=== PATIENT | female | born 2005 | race Caucasian/White ===

== ENCOUNTER → 2023-04-13 13:59 | Outpatient (BNVA) | payer BC, SELFPAY | PROVIDERS: Visit Provider Nurse Practitioner Women's Health | DX: Z34.90 Encounter for supervision of normal pregnancy, unspecified, unspecified trimester (principal); Z3A.00 Weeks of gestation of pregnancy not specified | CPT/HCPCS: 81000; 81025; 84439; 84443; 84481 ==

== ENCOUNTER → 2023-04-15 09:17 | Outpatient (BNVA) | payer BC, SELFPAY | PROVIDERS: Visit Provider Obstetrics & Gynecology | DX: Z34.90 Encounter for supervision of normal pregnancy, unspecified, unspecified trimester (principal); Z3A.01 Less than 8 weeks gestation of pregnancy | CPT/HCPCS: 76817 ==

== ENCOUNTER → 2023-05-12 09:45 | Outpatient (BNVA) | payer BC, SELFPAY | PROVIDERS: Visit Provider Obstetrics & Gynecology | DX: Z34.90 Encounter for supervision of normal pregnancy, unspecified, unspecified trimester (principal) | CPT/HCPCS: 80307; 84315; 85027; 86592; 86762; 86803; 86850; 86900; 87086; 87340; 87491; 87591; 87806 ==

== ENCOUNTER → 2023-06-16 13:41 | Outpatient (BNVA) | payer BC, SELFPAY | PROVIDERS: Visit Provider Nurse Practitioner Women's Health | DX: Z34.90 Encounter for supervision of normal pregnancy, unspecified, unspecified trimester (principal) | CPT/HCPCS: 82105; 84315 ==

== ENCOUNTER → 2023-07-14 14:27 | Outpatient (BNVA) | payer BC, SELFPAY | PROVIDERS: Visit Provider Nurse Practitioner Women's Health | DX: Z34.92 Encounter for supervision of normal pregnancy, unspecified, second trimester (principal); Z3A.20 20 weeks gestation of pregnancy | CPT/HCPCS: 76805 ==

== ENCOUNTER → 2023-08-11 07:57 | Outpatient (BNVA) | payer BC, SELFPAY | PROVIDERS: Visit Provider Nurse Practitioner Women's Health | DX: Z34.92 Encounter for supervision of normal pregnancy, unspecified, second trimester (principal); Z3A.24 24 weeks gestation of pregnancy | CPT/HCPCS: 76816 ==

== ENCOUNTER → 2023-08-12 07:53 | Outpatient (BNVA) | payer BC, SELFPAY | PROVIDERS: Visit Provider Nurse Practitioner Women's Health | DX: Z34.90 Encounter for supervision of normal pregnancy, unspecified, unspecified trimester (principal); R42 Dizziness and giddiness; Z3A.00 Weeks of gestation of pregnancy not specified | CPT/HCPCS: 82728; 82746; 83540; 83550; 84238; 84315; 84466; 85025 ==

== ENCOUNTER → 2023-08-25 09:16 | Outpatient (BNVA) | payer BC, SELFPAY | PROVIDERS: Visit Provider Obstetrics & Gynecology | DX: Z34.90 Encounter for supervision of normal pregnancy, unspecified, unspecified trimester (principal); Z3A.00 Weeks of gestation of pregnancy not specified | CPT/HCPCS: 76816 ==

== ENCOUNTER → 2023-09-08 09:13 | Outpatient (BNVA) | payer BC, SELFPAY | PROVIDERS: Visit Provider Obstetrics & Gynecology | DX: Z34.92 Encounter for supervision of normal pregnancy, unspecified, second trimester (principal); Z3A.24 24 weeks gestation of pregnancy | CPT/HCPCS: 82950; 84315; 85025 ==

== ENCOUNTER → 2023-11-03 13:17 | Outpatient (BNVA) | payer BC, MEDICAID, SELFPAY | PROVIDERS: Visit Provider Obstetrics & Gynecology | DX: Z34.92 Encounter for supervision of normal pregnancy, unspecified, second trimester (principal); Z3A.24 24 weeks gestation of pregnancy | CPT/HCPCS: 84315; 87081 ==

== ENCOUNTER 2023-11-07 08:59 | Inpatient (IN) | payer BC, MEDICAID, SELFPAY ==
[2023-11-07] VITALS (71 sets, daily range): BP systolic 103–144; BP diastolic 50–77; PULSE 68–114; RESP 16–17; TEMP 36.1–36.8; O2SAT 96–100; BMI 33.3
[2023-11-07 09:49] LABS: Basophils % 0.2 %; Eosinophils # 0.1 10^3/uL (0.0-0.8); Eosinophils % 0.7 %; Hematocrit 36.8 % (36-47); Lymphocytes # 1.9 10^3/uL (1.5-6.5); Lymphocytes % 17.2 %; Mean Corpuscular HGB Conc 32.6 g/dL (30-55); Mean Corpuscular Hemoglobin 29.1 pg (27-33); Mean Corpuscular Volume 89.3 fl (85-98); Mean Platelet Volume 12.3 fL (7.4-10.4); Monocytes # 0.8 10^3/uL (0.2-0.9); Monocytes % 7.4 %; Neutrophils # 8.35 10^3/uL (1.8-8.0); Neutrophils % 74.1 %; Nucleated Red Blood Cells % 0 %; Platelet Count 199 10^3/cmm (157-399); Red Blood Count 4.12 10^6/uL (3.85-5.65); Red Cell Distribution Width 12.5 % (12.1-15.1); White Blood Count 11.28 10^3/uL (4.5-13.0)
--- NOTE | 2023-11-07 09:49 | ANES.PREANE2 ---
Pre-Anesthetic Assessment Height/Weight: Height 1.6 m Weight 85.275 kg Pulse Resp BP O2 Del Method 83 16 119/59 Room Air 11/07/23 09:33 11/07/23 08:59 11/07/23 09:33 11/07/23 08:59 Epidural Familial anesthetic complications: None Was Beta Christa taken within 24 hours: N/A Was Clonidine taken within 24 hours: N/A Last intake: 7pm 11/05 solid food Social No alcohol and No tobacco Exam alert, oriented x 3, clear to auscultation bilaterally and regular rate & rhythm Airway Submandibular: within normal limits Cervical ROM: within normal limits Mallampati: Class II Dentition: full History/ROS No significant history except as noted and No significant complaints Pulmonary None reported CV/HEM None reported None reported Hepatic None reported GI Gastroesophageal Reflux Disease Metabolic Hashimotos Musc/skel None reported Neuropsych None reported Anesthetic Plan ASA status: 2 Anesthesia: Anesthesia Evaluation, General and Regional (specify below) (Epidural) Risk of > 500 ml blood loss (7ml/kg in children): No Medications/Allergies Allergies Allergy/AdvReac Type Severity Reaction Status Date / Time No Known Allergies Allergy Unverified 10/20/23 14:55 [facility] Anesthesia Medical History Jeff's thyroiditis Family History Denies family history of Cervical cancer Colon cancer Ovarian cancer Diabetes Breast cancer Hypertension Uterine cancer Thyroid disease Stroke Female Reproductive History : 1 Data Anesthesia 11/07/23 09:25 Short CBC 11/07/23 Range/Units 09:25 WBC 11.28 (4.5-13.0) 10^3/uL Hgb 12.00 L (12.4-14.8) g/dL Hct 36.8 (36-47) % MCV 89.3 (85-98) fl Plt Count 199 (157-399) 10^3/cmm Neut % (Auto) 74.1 % Neut # (Auto) 8.35 H (1.8-8.0) 10^3/uL Cardiac Studies: No Data to Display
[2023-11-07] MEDS: ondansetron 2 mg/ML SDV 2 mL 4 MG IVP (10:14)
[2023-11-07] MEDS: fentaNYL 50 mcg/mL INJ 2mL IVP ×3 (11:09→14:18)
--- NOTE | 2023-11-07 13:35 | P.HP_ITS ---
Providers/Chief Complaint 2 Admitting Physician: Kely Marquis DO Chief Complaint: cramping, bleeding HPI DATA WAREHOUSE ARCHITECT History of Present Illness Elizabeth Crenshaw is a 18 year old female G1, P0 at 36.5 weeks gestation and VIVIAN 11/30/2023 admitted to labor and delivery with complaint of uterine contractions and spotting onset 5:20 AM. Patient admitted to good movement. Initial pelvic exam cervix 1 cm 90% -3 vertex presentation. After observation at 8:55 AM spontaneous rupture membranes occurred with clear fluid being noted. Patient was then admitted to labor and delivery. External monitoring?category 1 and after spontaneous rupture membranes it has been 4 hours as cervix exam remains unchanged. I reviewed labor with patient and her family members in the room, reviewed augmentation with Pitocin to increase uterine contraction strength and frequency. The risk of nonreassuring monitoring which may require delivery by section was also reviewed. Risk of surgical complications including bleeding and infection were also reviewed. Patient understands and requested to ambulate before starting Pitocin. Risk of a fall or other injuries because of her use of narcotics for pain medicine was reviewed. Patient understands and family states they will assist her in walking if needed. 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 Present Details : 1 Para: 0 Labs Rubella: Immune RPR: Negative GBS: Negative Review of Systems 2 General: Reports: 10 or more systems reviewed and unremarkable except in HPI and below Narrative: 18-year-old female alert and orient x 3 no acute distress. Eyes: Reports: change in vision (Denies visual changes) Card: Reports: chest pain (Patient denies chest pain shortness of breath or any swelling of extremitie) Resp: Reports: dyspnea (Patient denies shortness of breath productive cough or any respiratory ailm) GI: Reports: abdominal pain (Patient denies abdominal pain nausea vomiting) : Reports: pelvic pain (Patient denies pelvic pain other than mild contractions, she denies any ronald) Neuro: Reports: headache(s) (Patient denies headaches blurred vision anxiety or depression.) Medications/Allergies Allergies Allergy/AdvReac Type Severity Reaction Status Date / Time No Known Allergies Allergy Unverified 10/20/23 14:55 PFSH DATA WAREHOUSE ARCHITECT 2 PFSH: Medical History Jeff's thyroiditis Family History Denies family history of Cervical cancer Colon cancer Ovarian cancer Diabetes Breast cancer Hypertension Uterine cancer Thyroid disease Stroke Other Female Reproductive History: Hx Age of Menarche: 10 Duration of menses: 3-5 days Date of Last Menstrual Period: 02/23/23 Menstrual flow: normal/abnormal: normal Sexual History: How old were you when you first had sex?: 14 Hx Sexually Transmitted Diseases: Yes STD History Comment: History of chlamydia?treated History History History 2 1 Term 0 Miscarriages/Ectopic Living Children Care VIVIAN Calculator 2 Estimated Delivery Date Method Current WG Current Estimate 11/30/23 LMP (Certain) 36w 5d Other Estimates 12/01/23 Ultrasound #1 36w 4d Vitals/I&O/Wt Last Vital Signs Pulse 83 11/07/23 09:33 Resp 17 11/07/23 12:17 BP 119/59 11/07/23 09:33 O2 Del Method Room Air 11/07/23 08:59 Weight last 48 hrs Weight 85.275 kg Physical Exam 2 Narrative: 18-year-old female alert and orient x 3 no acute distress Const: COMMON NORMALS: no acute distress, average body habitus, patient oriented x3, healthy appearing and well nourished HENMT: COMMON NORMALS: normocephalic, moist oral mucous membranes and dentition normal Resp: COMMON NORMALS: normal respiratory effort and clear to auscultation bilaterally Cardio: COMMON NORMALS: regular rate and regular rhythm Back/Pelvis: COMMON NORMALS: no CVA tenderness Extremity: COMMON NORMALS: normal to inspection, no clubbing, cyanosis or edema and no calf tenderness Neuro: COMMON NORMALS: patient oriented x3, CN's II-XII intact bilaterally, moves all extremities and gait normal Psych: COMMON NORMALS: mental status grossly normal Data 11/07/23 09:25 Results Labs OB ([facility]): 2 Obstetrics US 08/25/23 Blood Type A Positive 11/07/23 Antibody Screen Negative 11/07/23 Hct 36.8 % (36-47) 11/07/23 Hgb 12.00 g/dL (12.4-14.8) L 11/07/23 Rho(D) Type Rh positive 11/07/23 Plt Count 199 10^3/cmm (157-399) 11/07/23 Hep Bs Antigen Non-reactive (Nonreactive) 05/12/23 Hepatitis C Antibody Non-reactive (Nonreactive) 05/12/23 Rubella IgG Antibody 12.8 IU/mL (0.0-10.0) H 05/12/23 RPR Nonreactive (Nonreactive) 05/12/23 HIV 1&2 Ab & HIV 1 Ag Non-reactive (Non-Reactiv) 05/12/23 TSH 1.80 uIU/mL (0.27-4.20) 04/13/23 Free T4 1.24 ng/dL (0.93-1.60) 04/13/23 C.trachomatis RNA (TMA) Not detected (NOT DETECTED) N.gonorrhoeae RNA (TMA) Not detected (NOT DETECTED) T. vaginalis Amp RNA Not detected (NOT DETECTED) 05/12/23 Chlamydia/GC Comment See note 05/12/23 Cystic Fibrosis Screen Negative 05/12/23 Gest Glucose Tolerance 123 mg/dL (70-139) 09/08/23 HCG, Qual Positive (Negative) H 04/13/23 Urine Opiates Screen Negative ng/mL (Negative) 05/12/23 Ur Barbiturates Screen Negative ng/mL (Negative) 05/12/23 Ur Phencyclidine Scrn Negative ng/mL (Negative) 05/12/23 Ur Amphetamines Screen Negative ng/mL (Negative) 05/12/23 U Benzodiazepines Scrn Negative ng/mL (Negative) 05/12/23 Urine Cocaine Screen Negative ng/mL (Negative) 05/12/23 U Marijuana (THC) Screen Negative ng/mL (Negative) 05/12/23 Micro Urine Specimen 05/12/23 A&P Assessment and plan (1) 36 to 37 weeks gestation of : Admit to labor and delivery for management of labor Augmentation with Pitocin. (2) Spontaneous rupture of membranes: (3) Jeff's thyroiditis: Attestations 2 Medical Necessity Statement*: Admit to labor and delivery for management of labor. Coding Level of Care Code Acute Code for Chg Fwd Diagnoses 36 to 37 weeks gestation of Spontaneous rupture of membranes Jeff's thyroiditis E06.3
[2023-11-07] MEDS: dextrose 5%-lactated ringers 1,000 ML 125 ML IV (14:50)
[2023-11-07] MEDS: oxytocin 30 UNIT/500 ML BAG IV (14:51)
[2023-11-07] MEDS: ROPivacaine syringe 100 MG/50 ML SYRINGE 10 MG EPIDURAL ×2 (16:29→20:11)
--- NOTE | 2023-11-07 16:40 | ANES.PROC ---
Anesthesia Procedures Procedure/Date: 11/07/23 Epidural: Time Out Performed: Yes Consents Signed: Procedure Consent and NPO Consent Consent: requested by attending/covering physician, from patient, risks and benefits reviewed and patient agrees to proceed Lumbar Level: L3-L4 Epidural position: sitting Epidural procedure: sterile prep of area (betadine), 1% lidocaine to numb the area (3 mLs), neg for paresthesia, test dose given, 1.5% xylocaine 1:200k epi (3 mL/2 mL), 0.2% Ropivacaine bolus ml (5 mLs), placed PCEA, no systemic response, sterile dressing applied, L.U.D. no apparent complications and 0.2% Ropiavacaine @ mls/hr (10 mLs/hr) Additional Comments: Attempt x2. Attempt 1 unable to thread catheter. Attempt 2 WANDA 6cm, catheter threaded to 12 cm. 100 mcg fentanyl given via epidural
--- NOTE | 2023-11-07 19:26 | P.PN_ITS ---
TERRITORY SERVICE REPRESENTATIVE Subjective 2 Subjective: Interval history: Into see patient, denies pain, admits to good movement. EFM?category 1 but contractions q 1 , will decrease Pitocin. Cervix?6 cm / 100%/0 vertex with bloody show. Reviewed findings with patient. Labor: Station: -2 Amniotic Membrane Status: Ruptured Monitor Mode: External Contraction Pattern: Regular Vitals/I&O/Wt Last Vital Signs Temp 97.0 F L 11/07/23 17:26 Pulse 73 11/07/23 19:12 Resp 17 11/07/23 14:18 BP 119/57 11/07/23 19:12 Pulse Ox 99 11/07/23 17:19 O2 Del Method Room Air 11/07/23 16:00 11/07/23 11/07/23 11/07/23 06:59 14:59 22:59 Intake Total 500 / 500 275.767 / 775.767 Balance 500 / 500 275.767 / 775.767 Weight last 48 hrs Weight 85.275 kg Physical Exam 2 Urinary Catheter Management: Mckeon: Cath Placed During This Visit: yes Reason for Continuing Indwelling Catheter: Other Urinary Catheter Date of Insertion: 11/07/23 Urinary Catheter Time of Insertion: 17:24 Data 11/07/23 09:25 A&P Assessment and plan (1) 36 to 37 weeks gestation of : Continue labor management (2) Spontaneous rupture of membranes: (3) Jeff's thyroiditis: Attestations 2 Medical Necessity Statement*: Patient mated to labor and delivery for management of labor Coding Level of Care Code Acute Code for Chg Fwd Diagnoses 36 to 37 weeks gestation of Spontaneous rupture of membranes Jeff's thyroiditis E06.3
--- NOTE | 2023-11-07 20:51 | P.PCNOB_ITS ---
Delivery Note: Date of delivery: November 07, 2023 Pre-delivery diagnoses: 37wk IUP SROM Early labor Jeff thyroiditis Post-delivery diagnoses: same Op report anesthesia: Epidural Delivering Physician: Davina Estimated blood loss (mL): 300 Findings: Viable female Delivery: 18-year-old female G1, P1 delivered a vi able baby girl OA presentation over primary laceration of the perineum. The anterior followed by the posterior shoulders delivered with the remainder of the baby's body to follow. The oral and nasal pathways bulb suctioned. Spontaneous robust cry noted. After a short delay the cord was clamped and cut. The baby was placed on mother's abdomen for bonding and nursing assessment. The uterus was massaged and the placenta presented in a Figueroa presentation with trailing membranes. The IV solution with Pitocin was given in a bolus manner. The uterus was massaged and noted to be firm. The vaginal vault was explored with the superficial primary perineal laceration noted. This was approximated with a simple interrupted stitch of 2-0 Vicryl. The uterus remained firm with minimal bleeding. The three-vessel cord was noted. The perineal was cleansed and dried. Mother and are both in stable and satisfactory condition. 9/9 EBL?300 anesthesia?epidural complications?none Post-Delivery Status: Stable History History History 1 Term 1 Miscarriages/Ectopic Living Children 1 Past Pregnancies Del. Date GA/Weeks Outcome Route Wt Inf Gender Labor Lgth Comp. Anesth esia Location Unknown 36 Vaginal Female A&P Assessment and plan (1) 36 to 37 weeks gestation of : P. Routine care. (2) Spontaneous rupture of membranes: (3) Jeff's thyroiditis: Coding Level of Care Code Acute Code for Chg Fwd Diagnoses 36 to 37 weeks gestation of Spontaneous rupture of membranes Jeff's thyroiditis E06.3
[2023-11-07] MEDS: HYDROcodone-acetaminophen 5-325 mg Tablet PO (23:18)
[2023-11-07] MEDS: benzocaine-menthol 78 gm Canister 1 SPRAY TOPICAL (23:19)
[2023-11-08] VITALS (10 sets, daily range): BP systolic 100–116; BP diastolic 45–72; PULSE 73–111; RESP 16–18; TEMP 36.6–36.9; O2SAT 98–100
[2023-11-08] MEDS: acetaminophen 325 mg Tablet 650 MG PO (07:43)
[2023-11-08] MEDS: prenatal vitamin Capsule 1 CAP PO (08:35)
[2023-11-08] MEDS: docusate sodium 100 mg Capsule PO ×2 (08:35→20:33)
[2023-11-08] MEDS: ibuprofen 800 mg tablet PO ×3 (08:35→20:33)
[2023-11-08 08:57] LABS: Hematocrit 30.8 % (36-47); Mean Corpuscular HGB Conc 33.8 g/dL (30-55); Mean Corpuscular Hemoglobin 29.6 pg (27-33); Mean Corpuscular Volume 87.7 fl (85-98); Mean Platelet Volume 12.1 fL (7.4-10.4); Platelet Count 167 10^3/cmm (157-399); Red Blood Count 3.51 10^6/uL (3.85-5.65); Red Cell Distribution Width 12.8 % (12.1-15.1); White Blood Count 12.68 10^3/uL (4.5-13.0)
--- NOTE | 2023-11-08 10:41 | P.PN_ITS ---
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 Patient is tolerating regular diet and voiding ambulating in room without difficulties. Patient is breast-feeding, infant slow to latch. application integration specialist has consulted with patient. course and discharge expectations have been reviewed with patient and she verbalizes good understanding. VSS, afebrile Labor: Station: +1 Amniotic Membrane Status: Ruptured Monitor Mode: External Contraction Pattern: Regular Vitals/I&O/Wt Last Vital Signs Temp 98.2 F 11/08/23 06:16 Pulse 76 11/08/23 06:16 Resp 17 11/07/23 14:18 BP 100/61 11/08/23 06:16 Pulse Ox 100 11/08/23 06:16 O2 Del Method Room Air 11/08/23 06:16 11/07/23 11/08/23 11/08/23 22:59 06:59 14:59 Intake Total 651.134 / 1151.134 Output Total 300 / 400 Balance 351.134 / 751.134 Weight last 48 hrs Weight 85.275 kg Physical Exam 2 Const: COMMON NORMALS: patient oriented x3 : COMMON NORMALS: Yes no CVA tenderness BLADDER/KIDNEY EXAM: Yes no CVA tenderness Back/Pelvis: COMMON NORMALS: no CVA tenderness OTHER: Abdomen?soft, fundus firm well below the umbilicus. Lochia light Extremity: NARRATIVE EXTREMITY EXAM: Extremities?feet slightly edematous nonpitting negative Homans' sign. Neuro: COMMON NORMALS: patient oriented x3, CN's II-XII intact bilaterally, moves all extremities, deep tendon reflexes 2+ bilaterally and gait normal Urinary Catheter Management: Mckeon: Cath Placed During This Visit: yes Reason for Continuing Indwelling Catheter: Other Urinary Catheter Date of Insertion: 11/07/23 Urinary Catheter Time of Insertion: 17:24 Data 11/08/23 08:48 A&P Assessment and plan (1) Status post vaginal delivery: P. Probable discharge 11/09/2023 (2) 36 to 37 weeks gestation of : (3) Jeff's thyroiditis: Attestations 2 Medical Necessity Statement*: care Coding Level of Care Code Acute Code for Chg Fwd Diagnoses Status post vaginal delivery 36 to 37 weeks gestation of Jeff's thyroiditis E06.3
--- NOTE | 2023-11-08 14:29 | ANE.PACU2 ---
Inpatient post-anesthesia follow up: Airway intact: Yes Vital signs: Temperature 98.0 F Pulse Rate 80 Respiratory Rate 16 Blood Pressure 109/63 Pulse Oximetry 100 Oxygen Delivery Me thod Room Air Oxygen Flow Rate Fraction of Inspir ed Oxygen Hydration adequate: Yes Nausea and vomiting: No Pain level: 1 Mental status: Baseline Epidural Start/End: Epidural Start Date: 11/07/23 Epidural Start Time: 15:58 Epidural End Date: 11/07/23 Epidural End Time: 20:51
[2023-11-09 05:00] VITALS: BP 107/65; PULSE 61; RESP 16; TEMP 36.5; O2SAT 97
[2023-11-09 09:05] VITALS: BP 102/63; PULSE 65; RESP 17; TEMP 36.8; O2SAT 98
[2023-11-09] MEDS: ibuprofen 800 mg tablet PO (09:15)
[2023-11-09] MEDS: docusate sodium 100 mg Capsule PO (09:15)
[2023-11-09] MEDS: prenatal vitamin Capsule 1 CAP PO (09:15)
--- NOTE | 2023-11-09 10:19 | PM.OBGYDC ---
Discharge Providers DIFFERENTIAL TESTER Date of Admission: 11/07/23 08:59 Date of Discharge: 11/09/23 Attending Provider at Admission: Kely Marquis DO Attending Provider at Discharge: Jonathan Pacheco MD Diagnoses at Discharge Discharge Diagnosis (1) Status post vaginal delivery: Status: Acute (2) 36 to 37 weeks gestation of : Status: Acute (3) Jeff's thyroiditis: Status: Acute Reason for Visit Reason for Visit: cramping, bleeding Hospital Course Hospital Course 18-year-old G1, P1 s/p viable female day 2 doing well with no complaints. Patient is tolerating regular diet and voiding ambulating in room without difficulties. Patient is breast-feeding, infant slow to latch. engineering specialist has consulted with patient. course and discharge expectations have been reviewed with patient and she verbalizes good understanding. VSS, afebrile Information Peripartum Data: Delivery Method: Vaginal Physical Exam Narrative: GA; alert and oriented x 3 HEENT: normal Breasts: engorged Nipples - skin intact Lungs; clear to auscultation Heart: regular rhythm, no murmurs. Abd: Appropriately tender. BS+. Uterine fundus below umbilicus. No Fundal Tenderness. Perineum: normal lochia. Extremities: no edema, no cyanosis, no tenderness. Urinary Catheter Management: Mckeon: Cath Placed During This Visit: yes Reason for Continuing Indwelling Catheter: Other Urinary Catheter Date of Insertion: 11/07/23 Urinary Catheter Time of Insertion: 17:24 History History History 1 Term 1 Miscarriages/Ectopic Living Children 1 Past Pregnancies Del. Date GA/Weeks Outcome Route Wt Inf Gender Labor Lgth Comp. Anesthesia Location Unknown 36 Vaginal Female Discharge Data Studies Completed and Pending Laboratory Results WBC 12.68 10^3/uL (4.5-13.0) 11/08/23 08:48 RBC 3.51 10^6/uL (3.85-5.65) L 11/08/23 08:48 Hgb 10.40 g/dL (12.4-14.8) L 11/08/23 08:48 Hct 30.8 % (36-47) L 11/08/23 08:48 MCV 87.7 fl (85-98) 11/08/23 08:48 MCH 29.6 pg (27-33) 11/08/23 08:48 MCHC 33.8 g/dL (30-55) 11/08/23 08:48 RDW 12.8 % (12.1-15.1) 11/08/23 08:48 Plt Count 167 10^3/cmm (157-399) 11/08/23 08:48 MPV 12.1 fL (7.4-10.4) H 11/08/23 08:48 Neut % (Auto) 74.1 % 11/07/23 09:25 Lymph % (Auto) 17.2 % 11/07/23 09:25 [place] % (Auto) 7.4 % 11/07/23 09:25 Eos % (Auto) 0.7 % 11/07/23 09:25 Baso % (Auto) 0.2 % 11/07/23 09:25 Neut # (Auto) 8.35 10^3/uL (1.8-8.0) H 11/07/23 09:25 Lymph # (Auto) 1.9 10^3/uL (1.5-6.5) 11/07/23 09:25 [place] # (Auto) 0.8 10^3/uL (0.2-0.9) 11/07/23 09:25 Eos # (Auto) 0.1 10^3/uL (0.0-0.8) 11/07/23 09:25 Baso # (Auto) 0.0 10^3/uL (0.0-0.1) 11/07/23 09:25 Nucleated RBC % (auto) 0 % 11/07/23 09:25 Nucleated RBCs # 0.0 /100WBC 11/07/23 09:25 Blood Type A Positive 11/07/23 09:25 Rho(D) Type Rh positive 11/07/23 09:25 Antibody Screen Negative 11/07/23 09:25 Procedures Performed Spontaneous vaginal delivery Vitals Last Vital Signs Temp 97.7 F 11/09/23 05:00 Pulse 61 11/09/23 05:00 Resp 16 11/09/23 05:00 BP 107/65 11/09/23 05:00 Pulse Ox 97 11/09/23 05:00 O2 Del Method Room Air 11/09/23 05:00 Results Labs OB ([facility]): Obstetrics US 08/25/23 Blood Type A Positive 11/07/23 Antibody Screen Negative 11/07/23 Hct 30.8 % (36-47) L 11/08/23 Hgb 10.40 g/dL (12.4-14.8) L 11/08/23 Rho(D) Type Rh positive 11/07/23 Plt Count 167 10^3/cmm (157-399) 11/08/23 Hep Bs Antigen Non-reactive (Nonreactive) 05/12/23 Hepatitis C Antibody Non-reactive (Nonreactive) 05/12/23 Rubella IgG Antibody 12.8 IU/mL (0.0-10.0) H 05/12/23 RPR Nonreactive (Nonreactive) 05/12/23 HIV 1&2 Ab & HIV 1 Ag Non-reactive (Non-Reactiv) 05/12/23 TSH 1.80 uIU/mL (0.27-4.20) 04/13/23 Free T4 1.24 ng/dL (0.93-1.60) 04/13/23 C.trachomatis RNA (TMA) Not detected (NOT DETECTED) 05/12/23 N.gonorrhoeae RNA (TMA) Not detected (NOT DETECTED) 05/12/23 T. vaginalis Amp RNA Not detected (NOT DETECTED) 05/12/23 Chlamydia/GC Comment See note 05/12/23 Cystic Fibrosis Screen Negative 05/12/23 Gest Glucose Tolerance 123 mg/dL (70-139) 09/08/23 HCG, Qual Positive (Negative) H 04/13/23 Urine Opiates Screen Negative ng/mL (Negative) 05/12/23 Ur Barbiturates Screen Negative ng/mL (Negative) 05/12/23 Ur Phencyclidine Scrn Negative ng/mL (Negative) 05/12/23 Ur Amphetamines Screen Negative ng/mL (Negative) 05/12/23 U Benzodiazepines Scrn Negative ng/mL (Negative) 05/12/23 Urine Cocaine Screen Negative ng/mL (Negative) 05/12/23 U Marijuana (THC) Screen Negative ng/mL (Negative) 05/12/23 Micro Urine Specimen 05/12/23 Discharge Plan Discharge Patient Disposition: Home Condition: Stable Prescriptions: New acetaminophen 325 mg capsule 325 mg PO Q4H PRN (Reason: fever or pain) Qty: 60 0RF ferrous sulfate [Iron (ferrous sulfate)] 325 mg (65 mg iron) tablet 325 mg PO BID Qty: 60 0RF ibuprofen 800 mg tablet 800 mg PO TID PRN (Reason: pain) Qty: 60 0RF docusate sodium [Colace] 100 mg capsule 100 mg PO BID Qty: 60 0RF Discharge Orders: Discharge Order (Routine); Ordered 11/09/23 Ordered By: Jonathan Pacheco Referrals: Matthew Oleary MD [Physician] - 6 Weeks Discharge Diet: Usual diet Discharge Activity: Limit activity as instructed Patient Instructions: Depression (DC), Opioid Safety (DC), Preeclampsia and Eclampsia After Delivery (GEN), Hemorrhage (DC), OB Discharge Report, OB Food/Drug Interaction Guide, OB Care at Home, Opioid Safety, OB Vaginal Deliveries - [facility], Abnormal Bleeding Activity Restrictions/Additional Instructions: 1. Please call [facility] on next working day to make your appointment in 6 weeks. 2. Please stay home until you come back to the clinic on first post-hospatilization check up. 3. Please follow instructions on your medications CAREFULLY. 4. If you have abdominal incision, do not cover it unless dressing is necessary because of drainage. OK to shower, but avoid bath. Leave steri-strips until they fall off. If they are still on one week after surgery, you may remove them. 5. If you had vaginal surgery or vaginal repair, Dr. Pacheco may instruct you to take SITZ bath. 6. Yellow, blood tinged odorous vaginal discharge is usually normal after hysterectomy or vaginal surgeries. 7. No SEXUAL INTERCOURSE, tampons, or douches until you are completely released from the post-operative care. 8. Avoid constipation by eating right and maybe using some Metamucil or Milk of Magnesia. 9. All prescription refills are given during the working hours. Please do no wait till it runs out. Call the clinic at [phone] before your medication runs out. The clinic will get in touch with your doctor to prescribe medications if necessary. 10. Please remain within 40 mile radius from our hospital because emergencies do happen now and then during the post-operative period. 11. If you have stairs at home, take one step at a time slowly and minimize the number of trips. It helps to stay in one floor for the next few days. No lifting except what you can lift by one hand until you are released from the post-operative care. 12. Driving is discouraged until you are well healed. It may be 3-4 weeks before you feel strong enough to drive. You should be able to turn and look through the rear window without pain and you should be able to push the brake pedal very hard without pain before you drive. No fast rules, but SAFETY should be your primary concern. DO NOT drive if you are on sedating medications such as narcotics. 13. Call the clinic (during working hours) to make urgent appointment or go to the Emergency room, if any of the following occurs: i. Vaginal bleeding becomes heavy, more than a period. ii. Incision becomes red and sore, or drains pus. iii. Your TEMPERATURE is over 100.4F or you have chill. iv. IV site becomes red and swollen (a little ``knot?? is usually OK) v. Persistent nausea and vomiting vi. Persistent constipation or diarrhea vii. Rash or allergic reaction to medications. Discharge Attestations DIFFERENTIAL TESTER Time Spent in Discharge Care*: greater than 30 min Coding Level of Care Code Acute Code for Chg Fwd Diagnoses Status post vaginal delivery 36 to 37 weeks gestation of Jeff's thyroiditis E06.3
[2023-11-09 11:22] VITALS: BP 106/68; PULSE 68; RESP 17; TEMP 36.4
[2023-11-09 11:40] VITALS: BP 106/68; PULSE 68; RESP 17; TEMP 36.4
== END 2023-11-09 11:40 | disposition home or self-care (01) | DRG 807 ==
LOC: OPOB 08:59 → OBGYN 08:59
PROVIDERS: Absent Provider Obstetrics & Gynecology; Admitting Provider Obstetrics & Gynecology; Visit Provider Obstetrics & Gynecology
DX: O99.284 Endocrine, nutritional and metabolic diseases complicating childbirth (principal); Z37.0 Single live birth; E06.3 Autoimmune thyroiditis; Z3A.36 36 weeks gestation of pregnancy; O70.0 First degree perineal laceration during delivery
CPT/HCPCS: 36415; 51702; 59025; 59409; 85025; 85027; 86850; 86900; 96374; 96376; 98960; 99211; J2405; J2590; J2795; J3010; J7121